=== PATIENT | male | born 1985 | race Caucasian/White ===

== ENCOUNTER 2018-05-28 19:34 | Emergency (ER) | payer OTHER ==
[~2018-05-28] VITALS: Ht 162.6 cm; Wt 65.8 kg
[2018-05-28 19:57] VITALS: BP 123/88
[2018-05-28 20:44] LABS: APPEARANCE,URINE Clear (CLEAR); BILIRUBIN,URINE Negative (NEGATIVE); BLOOD, URINE Negative Ery/uL (NEGATIVE); COLOR,URINE Yellow (YELLOW); KETONES,URINE Negative (NEGATIVE); LEUKOCYTE ESTERASE ,URINE Negative (NEGATIVE); NITRITE, URINE Negative (NEGATIVE); PROTEIN,URINE Negative (NEGATIVE); UGLUCOSE Negative (NEGATIVE); UROBILINOGEN,URINE 0.2 EU/dL (0.2)
== END 2018-05-28 21:49 | disposition home or self-care (01) ==
LOC: ER 19:41
DX: N43.3 Hydrocele, unspecified (principal); Z60.2 Problems related to living alone
CPT/HCPCS: 76870; 81001; 99285; A4606; Z7610; 81000-TC